=== PATIENT | female | born 1955 | race Two or more races ===

== ENCOUNTER 2018-07-15 06:02 | Day surgery (SDC) | payer OTHER ==
[~2018-07-15 06:02] MED LIST: CALTRATE 600 +1 EACH PO; CLONAZEPAM1 M1 PO; MAGNESIUM400 MG PO; TOPROL XL100 M1 PO; VIT PO; [UNRECOGNIZED DRUG - OTHER] PO
[2018-07-15] MEDS ORDERED: PERCOCET 5-3251 EACH PO (09:45)
[2018-07-15] MEDS ORDERED: RECTICARE30 GM TOP (09:46)
== END 2018-07-15 14:10 | disposition home or self-care (01) ==
LOC: CIR.AMB 06:02
DX: K64.3 Fourth degree hemorrhoids (principal); K64.4 Residual hemorrhoidal skin tags